=== PATIENT | female | born 1990 | race Caucasian/White ===

== ENCOUNTER 2016-07-12 12:05 | Emergency (ER) | payer MEDICAID ==
[2016-07-12 12:19] VITALS: BP 128/78
--- NOTE | 2016-07-12 12:29 | EDM.PDOC ---
[id number] "I need more medicine until next thursday" Time Seen by Provider: 07/12/16 12:05 Source of Information: Reports: Patient History Limitations: Reports: No limitations - History of Present Illness INITIAL COMMENTS - FREE TEXT/NARRATIVE: This is a well known to department 26 year old that presents to the ER. Patient reports she is out of all her medications. She requests refills for trazadone, dilaudid, oxycodone, clonidine, tegretol, prilosec, robaxin, hydrocodoone, xanax , cymbalta. She denies any symptoms or complaints. Onset: today Onset Date: 07/12/16 Improves with: Reports: None Worsens with: Reports: None Associated Symptoms: Reports: no other symptoms - Related Data Allergies Allergy/AdvReac Type Severity Reaction Status Date / Time amoxicillin [Amoxicillin] Allergy Hives Verified 07/12/16 13:21 azithromycin [From Zithromax] Allergy Hives Verified 07/12/16 13:21 cephalexin [Cephalexin] Allergy Hives Verified 07/12/16 13:21 Sulfa (Sulfonamide Allergy Hives Verified 07/12/16 13:21 Antibiotics) Home Meds: Home Meds ALPRAZolam [Xanax] 1 mg PO TID PRN 04/08/13 [History] DULoxetine [Cymbalta] 120 mg PO BEDTIME 04/08/13 [History] Hydrocodone/Acetaminophen [Hydrocodon-Acetaminophn 10-325] 1 tab PO Q6H PRN [History] Omeprazole [Prilosec] 20 mg PO DAILY 04/08/13 [History] traZODone 50 - 100 mg PO BEDTIME PRN 04/08/13 [History] cloNIDine [Catapres] 0.1 mg PO QID 02/17/14 [History] carBAMazepine [TEGretol Tab] 200 mg PO TID 05/05/15 [History] Methocarbamol [Robaxin] 500 mg PO Q8H 01/20/16 [History] SUMAtriptan [Imitrex] 25 mg PO Q2H PRN 01/20/16 [History] oxyCODONE 5 mg PO Q8H PRN 04/21/16 [History] Past Medical History - Past Health History Medical/Surgical History: Denies Medical/Surgical History Cardiovascular History: Reports: Hypertension, Other (see below) 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 Gastrointestinal History: Reports: GERD, Other (see below) Other Gastrointestinal History: bowel adhesions Genitourinary History: Reports: UTI, recurrent 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, Other (see below) Other OB/BYN History: Ovarian cyst removal; current right ovarian cyst X 2 of 5cm each Neurological History: Reports: Seizure Psychiatric History: Reports: Anxiety, Depression, Panic attack, PTSD, Other ( see below) Other Psychiatric History: Multiple personality disorder - Past Surgical History GI Surgical History: Reports: Appendectomy Social & Family History - Family History Family Medical History: Noncontributory Cardiac: Reports: CAD, Hypertension - Tobacco Use Smoking Status *Q: Current Every Day Smoker Years of Tobacco use: 7 Packs/Tins Daily: 1 Second Hand Smoke Exposure: Yes - Caffeine Use Caffeine Use: Reports: Coffee, Energy drinks, Soda - Alcohol Use Days Per Week of Alcohol Use: 1 Number of Drinks Per Day: 2 Total Drinks Per Week: 2 - Recreational Drug Use Recreational Drug Use: No Recreational Drug Type: Reports: Marijuana/Hashish - Living Situation & Occupation Living situation: Reports: with family ED ROS GENERAL - Review of Systems Review Of Systems: See Below Constitutional: Reports: no symptoms HEENT: Reports: No symptoms Respiratory: Reports: No Symptoms Cardiovascular: Reports: No symptoms Endocrine: Reports: no symptoms GI/Abdominal: Reports: No symptoms : Reports: no symptoms Musculoskeletal: Reports: no symptoms Skin: Reports: no symptoms Neurological: Reports: No Symptoms Psychiatric: Reports: No symptoms Hematologic/Lymphatic: Reports: no symptoms Immunologic: Reports: no symptoms ED EXAM, GENERAL - Physical Exam Exam: See Below Exam Limited By: No limitations General Appearance: alert, WD/WN, no apparent distress Eye Exam: bilateral eye: PERRL Ears: normal external exam, normal canal, hearing grossly normal, normal TMs Ear Exam: bilateral ear: auricle normal, canal normal, TM normal Throat/Mouth: Normal inspection Respiratory/Chest: no respiratory distress, lungs clear, normal breath sounds, no accessory muscle use Cardiovascular: normal peripheral pulses, regular rate, rhythm, no edema, no gallop, no JVD, no murmur, no rub Course - Vital Signs Last Recorded V/S: Last Vital Signs Temp 98.2 F 07/12/16 12:18 Pulse 76 04/22/17 12:18 Resp 20 07/12/16 12:18 BP 128/78 07/12/16 12:18 Pulse Ox 99 07/12/16 12:18 - Re-Assessments/Exams Free Text/Narrative Re-Assessment/Exam: 07/12/16 12:31 I called [facility] and talked with them about her GAVIN report. The patient had several medications filled recently. She had Dilaudid filled on June 06 quantity of 30, quantity 30, and quantity 20. She got filled hydrocodone june 16 a 30 day supply. She got filled Tylenol #3 on July 08 quantity 40. I instructed the patient about her violation of the law by not taking medications as prescribed, I instructed her I would not fill her pain medications. I told her this ER will not re fill her medications that are narcotics again. Departure - Departure Time of Disposition: 12:25 Disposition: Home, Self-Care 01 Condition: good Clinical Impression: Medication refill, Drug-seeking behavior, Chronic narcotic dependence, Narcotic dependency, continuous Referrals: U [Other] Forms: ED Department Discharge Additional Instructions: Followup with your primary care provider Take your medications as they are prescribed I filled for you and are available at [facility]: Clonidine 0.1mg by mouth four times a day #40 no refill Prilosec 20mg 1 pill once a day #10 no refill Cymbalta 120mgt 1 pill at bedtime #10 no refill Tegretol 200mg 1 pill three times a day #30 no refill *THIS EMERGENCY DEPARTMENT WILL NO LONGER REFILL PAIN MEDICATION: EVIDENCE BY GAVIN REPORT. - Assessment/Plan Plan: PLEASE SEE RN NOTE FOR PFSH.
== END 2016-07-12 12:35 | disposition home or self-care (01) ==
LOC: CC.ED 12:05
DX: Z76.0 Encounter for issue of repeat prescription (principal); F11.20 Opioid dependence, uncomplicated; Z76.5 Malingerer [conscious simulation]; I10 Essential (primary) hypertension; K21.9 Gastro-esophageal reflux disease without esophagitis; F41.9 Anxiety disorder, unspecified; F32.9 Major depressive disorder, single episode, unspecified; F17.210 Nicotine dependence, cigarettes, uncomplicated; Z88.1 Allergy status to other antibiotic agents; Z87.440 Personal history of urinary (tract) infections; Z88.2 Allergy status to sulfonamides; Z79.899 Other long term (current) drug therapy; Z90.49 Acquired absence of other specified parts of digestive tract
CPT/HCPCS: 99281

== ENCOUNTER 2016-07-17 21:21 | Emergency (ER) | payer MEDICAID ==
[2016-07-17 21:47] VITALS: BP 130/76
[2016-07-17 21:48] LABS: CHLORIDE,CL 109 mEq/L (98-106); SODIUM,NA 145 mEq/L (136-145)
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
== END 2016-07-17 23:00 ==
LOC: CC.ED 21:21
DX: F10.129 Alcohol abuse with intoxication, unspecified (principal); R45.851 Suicidal ideations; R45.850 Homicidal ideations; I10 Essential (primary) hypertension; K21.9 Gastro-esophageal reflux disease without esophagitis; F41.9 Anxiety disorder, unspecified; F32.9 Major depressive disorder, single episode, unspecified; Z90.49 Acquired absence of other specified parts of digestive tract; Z88.1 Allergy status to other antibiotic agents; Z88.2 Allergy status to sulfonamides; Z79.899 Other long term (current) drug therapy; Z87.440 Personal history of urinary (tract) infections; F17.210 Nicotine dependence, cigarettes, uncomplicated
CPT/HCPCS: 36415; 80048; 84703; 85025; 99285

== ENCOUNTER 2016-08-28 20:46 | Emergency (ER) | payer MEDICAID, SELFPAY ==
[2016-08-28 20:54] VITALS: BP 135/92
[2016-08-28] MEDS ORDERED: HYDROmorphone 1 MG/ML Syringe IM ONE (21:24)
[2016-08-28] MEDS ORDERED: Ondansetron 4 MG Tab.DIS PO ONE (21:25)
[2016-08-28] MEDS ORDERED: Ketorolac 60 MG/2 ML SDV IM ONE (21:25)
--- NOTE | 2016-08-28 21:28 | EDM.PDOC ---
ED HPI GENERAL MEDICAL PROBLEM - General Chief Complaint: Abdominal Pain Stated Complaint: ovarian cyst pain Time Seen by Provider: 08/28/16 21:04 Source of Information: Reports: Patient History Limitations: Reports: No Limitations - History of Present Illness INITIAL COMMENTS - FREE TEXT/NARRATIVE: This patient is a very well known patient to the ER. Patient reports history of chronic pain to the Right ovary. She reports she takes Percocet, but she ran out on the 6th. She reports she has contacted her PCP about this. She reports she was instructed to come to the ER for pain worsening after not having pain medication. Patient denies ingram, dizziness, n, v, d, f, abd pain, dysuria, discharge, bleeding. Fully alert and oriented. Does not appear in distress. Reports pain is not as bad as it has been in past, as this is a chronic condition with waxing and waning. Stable. Duration: Chronic (worse since yesterday) Quality: Reports: Ache Severity: Mild Improves with: Reports: None Worsens with: Reports: None Associated Symptoms: Reports: No Other Symptoms. Denies: Confusion, Chest Pain , Cough, cough w sputum, Diaphoresis, Fever/Chills, Headaches, Loss of Appetite , Malaise, Nausea/Vomiting, Rash, Seizure, Shortness of Breath, Syncope, Weakness Right Pelvic Pain Score (Numeric/FACES): 10 - Related Data Allergies Allergy/AdvReac Type Severity Reaction Status Date / Time amoxicillin [Amoxicillin] Allergy Hives Verified 08/28/16 20:47 azithromycin [From Zithromax] Allergy Hives Verified 08/28/16 20:47 cephalexin [Cephalexin] Allergy Hives Verified 08/28/16 20:47 Sulfa (Sulfonamide Allergy Hives Verified 08/28/16 20:47 Antibiotics) Home Meds: Home Meds ALPRAZolam [Xanax] 1 mg PO TID PRN 04/08/13 [History] DULoxetine [Cymbalta] 120 mg PO BEDTIME 04/08/13 [History] Hydrocodone/Acetaminophen [Hydrocodon-Acetaminophn 10-325] 1 tab PO Q6H PRN [History] Omeprazole [Prilosec] 20 mg PO DAILY 04/08/13 [History] traZODone 50 - 100 mg PO BEDTIME PRN 04/08/13 [History] cloNIDine [Catapres] 0.1 mg PO QID 02/17/14 [History] carBAMazepine [TEGretol Tab] 300 mg PO TID 05/05/15 [History] Methocarbamol [Robaxin] 500 mg PO Q8H 01/20/16 [History] SUMAtriptan [Imitrex] 25 mg PO Q2H PRN 01/20/16 [History] oxyCODONE 5 mg PO Q8H PRN 04/21/16 [History] Past Medical History - Past Health History Medical/Surgical History: Denies Medical/Surgical History Cardiovascular History: Reports: Hypertension 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 Gastrointestinal History: Reports: GERD Other Gastrointestinal History: bowel adhesions Genitourinary History: Reports: UTI, Recurrent BLOCK 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 HAND History: Reports: PID, Polycystic Ovaries Other OB/BYN History: Ovarian cyst removal; current right ovarian cyst X 2 of 5cm each Neurological History: Reports: Seizure Psychiatric History: Reports: Anxiety, Depression, Panic Attack, PTSD Other Psychiatric History: Multiple personality disorder - Past Surgical History GI Surgical History: Reports: Appendectomy Social & Family History - Family History Family Medical History: Noncontributory Cardiac: Reports: CAD, Hypertension - Tobacco Use Smoking Status *Q: Current Every Day Smoker Years of Tobacco use: 10 Packs/Tins Daily: 0.5 Second Hand Smoke Exposure: Yes - Caffeine Use Caffeine Use: Reports: Coffee, Energy Drinks, Soda - Alcohol Use Days Per Week of Alcohol Use: 1 Number of Drinks Per Day: 2 Total Drinks Per Week: 2 - Recreational Drug Use Recreational Drug Use: No Recreational Drug Type: Reports: Marijuana/Hashish - Living Situation & Occupation Living situation: Reports: with Family ED ROS GENERAL - Review of Systems Review Of Systems: See Below Constitutional: Reports: No Symptoms HEENT: Reports: No Symptoms Respiratory: Reports: No Symptoms Cardiovascular: Reports: No Symptoms Endocrine: Reports: No Symptoms GI/Abdominal: Reports: No Symptoms : Reports: Pain ("right ovary"). Denies: Discharge, Dysuria, Flank Pain, Frequency, Hematuria, Incontinence, Irregular Menses, Urgency, Urinary Retention Musculoskeletal: Reports: No Symptoms Skin: Reports: No Symptoms Neurological: Reports: No Symptoms Psychiatric: Reports: No Symptoms Hematologic/Lymphatic: Reports: No Symptoms Immunologic: Reports: No Symptoms ED EXAM, GI/ABD - Physical Exam Exam: See Below Exam Limited By: No Limitations General Appearance: Alert, WD/WN, No Apparent Distress Eyes: Bilateral: Normal Appearance Ears: Normal External Exam, Normal Canal, Hearing Grossly Normal, Normal TMs Nose: Normal Inspection, Normal Mucosa, No Blood Throat/Mouth: Normal Inspection, Normal Lips, Normal Teeth, Normal Gums, Normal Oropharynx, Normal Voice, No Airway Compromise Head: Atraumatic, Normocephalic Neck: Normal Inspection, Supple, Non-Tender, Full Range of Motion Respiratory/Chest: No Respiratory Distress, Lungs Clear, Normal Breath Sounds, No Accessory Muscle Use Cardiovascular: Normal Peripheral Pulses, Regular Rate, Rhythm, No Edema, No Gallop, No JVD, No Murmur, No Rub GI/Abdominal: Soft, Tenderness (right ovary, mild. ) (Female) Exam: Deferred Back Exam: Normal Inspection, Full Range of Motion Extremities: Normal Inspection, Normal Range of Motion, Non-Tender, No Pedal Edema, Normal Capillary Refill Neurological: Alert, Oriented Psychiatric: Normal Affect, Normal Mood Skin Exam: Warm, Dry, Intact, Normal Color, No Rash Lymphatic: No Adenopathy Course - Vital Signs Last Recorded V/S: Last Vital Signs Temp 99.8 F 08/28/16 20:49 Pulse 100 08/28/16 20:49 Resp 16 08/28/16 20:49 BP 135/92 H 08/28/16 20:49 Pulse Ox 96 08/28/16 20:49 - Orders/Labs/Meds Meds: Medications Discontinued Medications Generic Name Dose Route Start Last Admin Trade Name Clifq PRN Reason Stop Dose Admin Hydromorphone HCl 0.5 mg 08/28/16 21:24 Dilaudid IM 08/28/16 21:25 ONETIME ONE Ketorolac Tromethamine 60 mg 08/28/16 21:25 Toradol IM 08/28/16 21:26 ONETIME ONE Ondansetron HCl 4 mg 08/28/16 21:25 Zofran Odt PO 08/28/16 21:26 ONETIME ONE Departure - Departure Time of Disposition: 21:26 Disposition: Home, Self-Care 01 Condition: good Clinical Impression: Ovarian cyst - Discharge Information Instructions: Ovarian Cyst, Qare-gu-Endy Referrals: PCP,None [Primary Care Provider] - Forms: ED Department Discharge Additional Instructions: Followup with your primary care provider Return to the ER for worsening of condition or any emergent concerns - Assessment/Plan Plan: PLEASE SEE RN NOTE FOR PFSH.
== END 2016-08-28 21:37 | disposition home or self-care (01) ==
LOC: CC.ED 20:46
DX: N83.201 Unspecified ovarian cyst, right side (principal); I10 Essential (primary) hypertension; K21.9 Gastro-esophageal reflux disease without esophagitis; F41.0 Panic disorder [episodic paroxysmal anxiety]; F32.9 Major depressive disorder, single episode, unspecified; F17.210 Nicotine dependence, cigarettes, uncomplicated; Z90.49 Acquired absence of other specified parts of digestive tract; Z79.899 Other long term (current) drug therapy; Z88.1 Allergy status to other antibiotic agents; Z88.2 Allergy status to sulfonamides
CPT/HCPCS: 96372; 99283; A9270; J1170; J1885

== ENCOUNTER 2017-01-23 21:39 | Emergency (ER) | payer MEDICAID ==
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
[2017-01-24 05:24] VITALS: BP 114/76
== END 2017-01-24 03:33 | disposition home or self-care (01) ==
LOC: CC.ED 21:39
DX: S30.0XXA Contusion of lower back and pelvis, initial encounter (principal); F15.10 Other stimulant abuse, uncomplicated; I10 Essential (primary) hypertension; K21.9 Gastro-esophageal reflux disease without esophagitis; F41.0 Panic disorder [episodic paroxysmal anxiety]; F32.9 Major depressive disorder, single episode, unspecified; F17.210 Nicotine dependence, cigarettes, uncomplicated; Z79.899 Other long term (current) drug therapy; Z88.1 Allergy status to other antibiotic agents; Z88.2 Allergy status to sulfonamides; Y04.0XXA Assault by unarmed brawl or fight, initial encounter
CPT/HCPCS: 72100; 80305; 81025; 99284

== ENCOUNTER 2017-09-14 11:20 | Emergency (ER) | payer MEDICAID ==
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
== END 2017-09-14 11:45 ==
LOC: CC.ED 11:20
DX: Z53.20 Procedure and treatment not carried out because of patient's decision for unspecified reasons (principal)

== ENCOUNTER 2018-08-27 16:19 | Emergency (ER) | payer SELFPAY ==
[2018-08-27 16:58] VITALS: BP 144/97
[2018-08-27 17:03] LABS: CHLORIDE,CL 108 mEq/L (98-106); SODIUM,NA 144 mEq/L (136-145)
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
[2018-08-27] MEDS ORDERED: NS + KCl 20mEq/L 1,000 ML IV SCH (17:30)
[2018-08-27] MEDS ORDERED: Sodium Chloride 0.9% 1,000 ML IV SCH (17:30)
[2018-08-27] MEDS ORDERED: NS + KCl 20mEq/L 1,000 ML ONE (17:33)
== END 2018-08-27 20:10 ==
LOC: CC.ED 16:19
DX: F29 Unspecified psychosis not due to a substance or known physiological condition (principal); R25.9 Unspecified abnormal involuntary movements; F15.10 Other stimulant abuse, uncomplicated; F41.9 Anxiety disorder, unspecified; K21.9 Gastro-esophageal reflux disease without esophagitis; I10 Essential (primary) hypertension; Z90.49 Acquired absence of other specified parts of digestive tract; Z88.1 Allergy status to other antibiotic agents; Z88.2 Allergy status to sulfonamides; Z79.899 Other long term (current) drug therapy
CPT/HCPCS: 36415; 80053; 80305; 82550; 85025; 86140; 99285; J3360; J3480; 96361; 96374

== ENCOUNTER 2019-09-13 15:40 | Emergency (ER) | payer MEDICAID ==
[2019-09-13 15:47] VITALS: BP 148/97; PULSE 118
--- NOTE | 2019-09-13 17:10 | EDM.PDOC ---
ED HPI GENERAL MEDICAL PROBLEM - General Chief Complaint: Genitourinary Problem Stated Complaint: vaginal bleeding Time Seen by Provider: 09/13/19 15:55 Source of Information: Reports: Patient, Significant Other History Limitations: Reports: Intoxication - History of Present Illness INITIAL COMMENTS - FREE TEXT/NARRATIVE: Lanny is a 29 yo female who presents to the ED with concerns of vaginal bleeding that started a few days ago. She states she was getting out of the shower a couple days ago and fell onto the tub. She admits it didn't really bother her that evening and ended up having intercourse that night. She states she started having some bleeding yesterday and was changing a pad roughly every 4 hours. hasn't had any bleeding recently but unsure if it is her period or possibly . She denies any discomfort at this time. She also would like someone to help her with her psychiatric medications as she has stopped those quite some time ago abruptly. She currently doesn't have a primary provider as she has been discharge from the clinic here in town. She admits to self medicating. She states she needs to see someone for her anxiety as it is getting worse and would like to see a counselor. Right Feet Pain Score (Numeric/FACES): 7 Right Lower Abdomen Pain Score (Numeric/FACES): 7 - Related Data Allergies Allergy/AdvReac Type Severity Reaction Status Date / Time amoxicillin [Amoxicillin] Allergy Hives Verified 09/13/19 16:24 azithromycin [From Zithromax] Allergy Hives Verified 09/13/19 16:24 cephalexin [Cephalexin] Allergy Hives Verified 09/13/19 16:24 Sulfa (Sulfonamide Allergy Hives Verified 09/13/19 16:24 Antibiotics) Home Meds: Home Meds ALPRAZolam [Xanax] 1 mg PO TID PRN 04/08/13 [History] DULoxetine [Cymbalta] 120 mg PO BEDTIME 04/08/13 [History] Hydrocodone/Acetaminophen [Hydrocodone-Acetamin 10-325 mg] 1 tab PO Q6H PRN 04/08/13 [History] Omeprazole [Prilosec] 20 mg PO DAILY 04/08/13 [History] traZODone 50 - 100 mg PO BEDTIME PRN 04/08/13 [History] cloNIDine [Catapres] 0.1 mg PO QID 02/17/14 [History] carBAMazepine [TEGretol Tab] 300 mg PO TID 05/05/15 [History] Methocarbamol [Robaxin] 500 mg PO Q8H 01/20/16 [History] SUMAtriptan [Imitrex] 25 mg PO Q2H PRN 01/20/16 [History] oxyCODONE 5 mg PO Q8H PRN 04/21/16 [History] Past Medical History - Past Health History Medical/Surgical History: Denies Medical/Surgical History Cardiovascular History: Reports: Hypertension 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 Gastrointestinal History: Reports: GERD Other Gastrointestinal History: bowel adhesions Genitourinary History: Reports: UTI, Recurrent 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 ORDNANCE History: Reports: PID, Polycystic Ovaries Other PAINTER ORDNANCE History: Ovarian cyst removal; current right ovarian cyst X 2 of 5cm each Neurological History: Reports: Seizure Psychiatric History: Reports: Anxiety, Depression, Panic Attack, PTSD Other Psychiatric History: Multiple personality disorder - Past Surgical History GI Surgical History: Reports: Appendectomy Social & Family History - Family History Family Medical History: Noncontributory Cardiac: Reports: CAD, Hypertension - Caffeine Use Caffeine Use: Reports: Coffee, Energy Drinks, Soda - Recreational Drug Use Recreational Drug Use: Yes Recreational Drug Type: Reports: Marijuana/Hashish - Living Situation & Occupation Living situation: Reports: with Family ED ROS GENERAL - Review of Systems Review Of Systems: Comprehensive ROS is negative, except as noted in HPI. GI/Abdominal: Reports: Abdominal Pain. Denies: Bloody Stool, Constipation, Diarrhea, Nausea, Vomiting : Reports: Irregular Menses. Denies: Discharge, Flank Pain, Hematuria Psychiatric: Reports: Anxiety ED EXAM, GI/ABD - Physical Exam Exam: See Below Exam Limited By: Intoxication (Patient is speaking at a very fast pace.) General Appearance: Anxious GI/Abdominal Exam: Normal Bowel Sounds, Soft, No Organomegaly, No Distention, No Mass, Pelvis Stable (Female) Exam: Deferred (patient declined exam. significant other states he looked and didn't notice any bruises or lacerations. ) Neurological: Alert, Oriented Psychiatric: Anxious, Tearful Course - Vital Signs Last Recorded V/S: Last Vital Signs Temp 98.7 F 09/13/19 15:42 Pulse 118 H 09/13/19 15:42 Resp 24 H 09/13/19 15:42 BP 148/97 H 09/13/19 15:42 Pulse Ox 98 09/13/19 15:42 - Orders/Labs/Meds Orders: Active Orders 24 hr Category Date Time Status Transvaginal Non OB [US] Stat Exams 09/13/19 16:14 Ordered DRUG SCREEN, URINE (NPL) Stat Lab 09/13/19 16:10 Stop Req Labs: Laboratory Tests 09/13/19 09/13/19 Range/Units 16:10 16:25 Urine HCG, Qual Negative Urine Opiates Screen Negative (NEGATIVE) Ur Oxycodone Screen Negative (NEGATIVE) Urine Methadone Screen Negative (NEGATIVE) Ur Barbiturates Screen Negative (NEGATIVE) U Tricyclic Antidepress Negative (NEGATIVE) Ur Phencyclidine Scrn Negative (NEGATIVE) Ur Amphetamine Screen Positive H (NEGATIVE) U Methamphetamines Scrn Positive H (NEGATIVE) Urine MDMA Screen Positive H (NEGATIVE) U Benzodiazepines Scrn Negative (NEGATIVE) Urine Cocaine Screen Negative (NEGATIVE) U Marijuana (THC) Screen Negative (NEGATIVE) Departure - Departure Time of Disposition: 17:11 Disposition: Home, Self-Care 01 Clinical Impression: Anxiety, Vaginal bleeding - Discharge Information Referrals: PCP,Fartun [Primary Care Provider] - Additional Instructions: 1) If bleeding returns or worsens, advise reevaluation 2) Will consult with Itzel Decker for assistance in records to mental health 3) Encourage sustaining from any illicit drugs 4) If any concerns, return for reevaluation. Sepsis Event Note (ED) - Evaluation Sepsis Screening Result: No Definite Risk - Focused Exam Vital Signs: Vital Signs Temp Pulse Resp BP Pulse Ox 09/13/19 15:42 98.7 F 118 H 24 H 148/97 H 98 - Problem List & Annotations (1) Methamphetamine abuse SNOMED Code(s): 258410373 Code(s): F15.10 - OTHER STIMULANT ABUSE, UNCOMPLICATED Status: Acute Current Visit: No (2) Anxiety SNOMED Code(s): 09914026 Code(s): F41.9 - ANXIETY DISORDER, UNSPECIFIED Status: Chronic Priority: Medium Current Visit: Yes Onset Date: 05/05/15 Annotation/Comment:: has taken too many xanax over the prescription time, is 8 days early (3) Vaginal bleeding SNOMED Code(s): 788390357 Code(s): N93.9 - ABNORMAL UTERINE AND VAGINAL BLEEDING, UNSPECIFIED Status: Acute Current Visit: Yes - My Orders Last 24 Hours: My Active Orders 09/13/19 16:10 DRUG SCREEN, URINE (NPL) Stat 09/13/19 16:14 Transvaginal Non OB [US] Stat - Assessment/Plan Last 24 Hours: My Active Orders 09/13/19 16:10 DRUG SCREEN, URINE (NPL) Stat 09/13/19 16:14 Transvaginal Non OB [US] Stat Plan: Ultrasound completed today and no acute findings. Simple cyst to left ovary noted. No free fluid. Urine is negative. Drug toxicology screen is positive for methamphetamines and MDMA. Discussed with Lanny she needs to establish care with a primary provider and will consult with Itzel Decker if there is anything we can do to help her within our facility.
== END 2019-09-13 17:19 | disposition home or self-care (01) ==
LOC: CC.ED 15:40
DX: N93.9 Abnormal uterine and vaginal bleeding, unspecified (principal); F41.9 Anxiety disorder, unspecified; I10 Essential (primary) hypertension; K21.9 Gastro-esophageal reflux disease without esophagitis; F32.9 Major depressive disorder, single episode, unspecified; Z88.1 Allergy status to other antibiotic agents; Z88.2 Allergy status to sulfonamides; Z79.899 Other long term (current) drug therapy
CPT/HCPCS: 76830; 80305-QW; 80307; 81025; 99284-25

== ENCOUNTER 2023-03-18 16:16 | Emergency (ER) | payer MEDICAID ==
[2023-03-18 17:10] VITALS: BP 140/96; PULSE 116
== END 2023-03-18 18:15 | disposition home or self-care (01) ==
LOC: CC.ED 16:16
DX: U07.1 COVID-19 (principal); I10 Essential (primary) hypertension; Z90.49 Acquired absence of other specified parts of digestive tract; Z88.0 Allergy status to penicillin; Z88.1 Allergy status to other antibiotic agents; Z88.2 Allergy status to sulfonamides; Z79.899 Other long term (current) drug therapy
CPT/HCPCS: 87804; 99283; 99284; U0002

== ENCOUNTER 2023-04-02 18:11 | Emergency (ER) | payer MEDICAID ==
[2023-04-02 18:16] VITALS: BP 166/90; PULSE 95
[2023-04-02] MEDS ORDERED: Take Home: Clindamycin HCl 150 MG Cap, 6 Cap Pack PO ONE (18:22)
== END 2023-04-02 18:40 | disposition home or self-care (01) ==
LOC: CC.ED 18:11
DX: K04.7 Periapical abscess without sinus (principal); I10 Essential (primary) hypertension; Z79.899 Other long term (current) drug therapy; Z88.0 Allergy status to penicillin; Z88.2 Allergy status to sulfonamides
CPT/HCPCS: 99282; 99283; A9270-GY

== ENCOUNTER 2023-04-06 20:25 | Emergency (ER) | payer MEDICAID ==
[2023-04-06 21:07] LABS: BASOPHILS ABSOLUTE AUTO 0.04 10^3/uL (0.00-0.50); BASOPHILS PERCENT AUTO 0.4 % (0-1); EOSINOPHILS ABSOLUTE AUTO 0.34 10^3/uL (0.00-1.50); EOSINOPHILS PERCENT AUTO 3.5 % (0-6); HEMATOCRIT 39.3 % (37.0-47.0); HEMOGLOBIN 13.7 g/dL (12.0-16.0); IMMATURE GRAN ABSOLUTE AUTO 0.01 10^3/uL (0.00-0.49); IMMATURE GRAN PERCENT AUTO 0.1 % (0.0-4.9); LYMPHOCYTES ABSOLUTE AUTO 2.86 10^3/uL (0.60-5.00); LYMPHOCYTES PERCENT AUTO 29.9 % (24-44); MEAN CORPUSCULAR HGB CONC 34.9 g/dL (32.0-36.0); MEAN CORPUSCULAR VOLUME 86.2 fL (83.0-97.0); MONOCYTES ABSOLUTE AUTO 0.57 10^3/uL (0.00-1.50); MONOCYTES PERCENT AUTO 5.9 % (0-10); NEUTROPHILS ABSOLUTE AUTO 5.76 x10^3/uL (1.80-8.00); NEUTROPHILS PERCENT AUTO 60.2 % (41-71); PLATELET COUNT,PLT 327 10^3/uL (150-400); RED BLOOD CELL COUNT 4.56 x10^6/uL (4.00-5.50); WHITE BLOOD CELL COUNT,WBC 9.6 10^3/uL (4.0-11.0)
[2023-04-06 21:23] LABS: ALANINE AMINOTRANSFERASE,ALT 19 U/L (12-78); ALKALINE PHOSPHATASE 72 U/L (46-116); ASPARTATE AMNIOTRANSFERASE,AST 13 U/L (15-37); BILIRUBIN TOTAL 0.2 mg/dL (0.0-1.0); BLOOD UREA NITROGEN,BUN 17 mg/dL (7-18); C-REACTIVE PROTEIN < 0.50 mg/dL (<=0.50); CALCIUM 9.1 mg/dL (8.4-10.1); CARBON DIOXIDE,CO2 25 mmol/L (21-32); CHLORIDE,CL 101 mEq/L (98-106); CREATININE 0.7 mg/dL (0.6-1.0); EST CRCL DRUG DOSING (CG) 82.88 mL/min; ESTIMATED GFR 118 mL/min (>=60); GLUCOSE RANDOM 106 mg/dL (75-99); POTASSIUM,K 3.9 mEq/L (3.5-5.0); PROTEIN TOTAL,TP 7.8 g/dL (6.4-8.2); SODIUM,NA 138 mEq/L (136-145)
[2023-04-06 22:04] VITALS: BP 116/80; PULSE 88
== END 2023-04-06 21:40 | disposition home or self-care (01) ==
LOC: CC.ED 20:25
DX: R09.1 Pleurisy (principal); K02.9 Dental caries, unspecified; I10 Essential (primary) hypertension; F17.210 Nicotine dependence, cigarettes, uncomplicated; Z88.1 Allergy status to other antibiotic agents; Z88.2 Allergy status to sulfonamides; Z90.49 Acquired absence of other specified parts of digestive tract
CPT/HCPCS: 36415; 71046; 80053; 85025; 86140; 87804; 99284; 99285

== ENCOUNTER 2023-06-10 10:26 | Emergency (ER) | payer MEDICAID ==
[2023-06-10 10:40] VITALS: BP 133/89; PULSE 107
[2023-06-10 10:47] LABS: BASOPHILS ABSOLUTE AUTO 0.01 10^3/uL (0.00-0.50); BASOPHILS PERCENT AUTO 0.4 % (0-1); EOSINOPHILS ABSOLUTE AUTO 0.04 10^3/uL (0.00-1.50); EOSINOPHILS PERCENT AUTO 1.6 % (0-6); HEMATOCRIT 42.9 % (37.0-47.0); LYMPHOCYTES ABSOLUTE AUTO 1.02 10^3/uL (0.60-5.00); LYMPHOCYTES PERCENT AUTO 39.7 % (24-44); MEAN CORPUSCULAR HEMOGLOBIN 29.2 pg (27.0-32.0); MEAN CORPUSCULAR HGB CONC 32.6 g/dL (32.0-36.0); MEAN CORPUSCULAR VOLUME 89.6 fL (83.0-97.0); MONOCYTES ABSOLUTE AUTO 0.23 10^3/uL (0.00-1.50); MONOCYTES PERCENT AUTO 8.9 % (0-10); NEUTROPHILS ABSOLUTE AUTO 1.27 x10^3/uL (1.80-8.00); NEUTROPHILS PERCENT AUTO 49.4 % (41-71); PLATELET COUNT,PLT 146 10^3/uL (150-400); RED BLOOD CELL COUNT 4.79 x10^6/uL (4.00-5.50); WHITE BLOOD CELL COUNT,WBC 2.6 10^3/uL (4.0-11.0)
[2023-06-10 11:00] LABS: ALBUMIN 3.6 g/dL (3.4-5.0); BILIRUBIN TOTAL 0.1 mg/dL (0.0-1.0); C-REACTIVE PROTEIN 0.66 mg/dL (<=0.50); CALCIUM 8.3 mg/dL (8.4-10.1); CREATININE 0.8 mg/dL (0.6-1.0); EST CRCL DRUG DOSING (CG) 90.84 mL/min; POTASSIUM,K 4.4 mEq/L (3.5-5.0); PROTEIN TOTAL,TP 7.3 g/dL (6.4-8.2)
== END 2023-06-10 11:45 | disposition home or self-care (01) ==
LOC: CC.ED 10:26
DX: J40 Bronchitis, not specified as acute or chronic (principal); J98.8 Other specified respiratory disorders; I10 Essential (primary) hypertension; Z90.49 Acquired absence of other specified parts of digestive tract; Z79.899 Other long term (current) drug therapy; Z88.2 Allergy status to sulfonamides; Z88.1 Allergy status to other antibiotic agents; Z88.0 Allergy status to penicillin
CPT/HCPCS: 36415; 80053; 85025; 86140; 87804; 99283; U0002

== ENCOUNTER → 2023-06-25 | Day surgery (SDC) | payer MEDICAID ==
[~2023-06-25] MED LIST: Lactated Ringers 1,000 ML IV SCH
[2023-06-25 10:12] LABS: AMPHETAMINES,URINE NEGATIVE (NEGATIVE); BARBITURATES,URINE NEGATIVE (NEGATIVE); BENZODIAZEPINE,URINE NEGATIVE (NEGATIVE); MDMA (ECSTASY), URINE NEGATIVE (NEGATIVE); METHADONE,URINE NEGATIVE (NEGATIVE); METHAMPHETAMINES,URINE NEGATIVE (NEGATIVE); OPIATES,URINE NEGATIVE (NEGATIVE); OXYCODONE,URINE POSITIVE (NEGATIVE); PHENCYCLIDINE,URINE NEGATIVE (NEGATIVE); TCA,URINE NEGATIVE (NEGATIVE)
== END ==
LOC: CC.SDS 09:57
PROVIDERS: ATTEND Dentist General Practice
DX: K08.89 Other specified disorders of teeth and supporting structures (principal); Z53.8 Procedure and treatment not carried out for other reasons
CPT/HCPCS: 36415; 80305-QW; 84703

== ENCOUNTER → 2023-11-12 | Day surgery (SDC) | payer MEDICAID ==
[2023-11-12 08:01] LABS: AMPHETAMINES,URINE POSITIVE (NEGATIVE); BARBITURATES,URINE NEGATIVE (NEGATIVE); BENZODIAZEPINE,URINE NEGATIVE (NEGATIVE); MDMA (ECSTASY), URINE NEGATIVE (NEGATIVE); METHADONE,URINE NEGATIVE (NEGATIVE); METHAMPHETAMINES,URINE POSITIVE (NEGATIVE); OPIATES,URINE NEGATIVE (NEGATIVE); OXYCODONE,URINE POSITIVE (NEGATIVE); PHENCYCLIDINE,URINE NEGATIVE (NEGATIVE); TCA,URINE NEGATIVE (NEGATIVE)
== END ==
LOC: CC.SDS 07:46
PROVIDERS: ATTEND Dentist General Practice
DX: K02.9 Dental caries, unspecified (principal); Z53.8 Procedure and treatment not carried out for other reasons
CPT/HCPCS: 36415; 80305-QW; 84703

== ENCOUNTER 2023-12-21 14:00 | Emergency (ER) | payer MEDICAID ==
[2023-12-21 14:11] VITALS: BP 128/92; PULSE 106
== END 2023-12-21 14:45 | disposition home or self-care (01) ==
LOC: CC.ED 14:00
DX: H60.92 Unspecified otitis externa, left ear (principal); I10 Essential (primary) hypertension; F17.210 Nicotine dependence, cigarettes, uncomplicated; Z88.0 Allergy status to penicillin; Z88.2 Allergy status to sulfonamides; Z88.8 Allergy status to other drugs, medicaments and biological substances; Z79.899 Other long term (current) drug therapy; Z90.49 Acquired absence of other specified parts of digestive tract
CPT/HCPCS: 99283

== ENCOUNTER 2024-02-17 18:54 | Emergency (ER) | payer MEDICAID ==
[2024-02-17 18:56] VITALS: BP 133/87; PULSE 109
[2024-02-17] MEDS: Take Home: Acetaminophen/HYDROcodone 325-5 MG, 2 Tab Pack PO ONE (19:08)
== END 2024-02-17 19:15 | disposition home or self-care (01) ==
LOC: CC.ED 18:54
DX: K03.81 Cracked tooth (principal); K02.9 Dental caries, unspecified; I10 Essential (primary) hypertension; K21.9 Gastro-esophageal reflux disease without esophagitis; F17.210 Nicotine dependence, cigarettes, uncomplicated; Z88.0 Allergy status to penicillin; Z88.1 Allergy status to other antibiotic agents; Z88.2 Allergy status to sulfonamides; Z88.8 Allergy status to other drugs, medicaments and biological substances; Z79.899 Other long term (current) drug therapy; Z90.49 Acquired absence of other specified parts of digestive tract
CPT/HCPCS: 99282; A9270-GY

== ENCOUNTER 2024-05-15 23:05 | Emergency (ER) | payer MEDICAID ==
[2024-05-15 23:09] VITALS: BP 123/82; PULSE 100
[2024-05-15 23:50] LABS: BASOPHILS ABSOLUTE AUTO 0.04 10^3/uL (0.00-0.50); BASOPHILS PERCENT AUTO 0.4 % (0-1); EOSINOPHILS ABSOLUTE AUTO 0.56 10^3/uL (0.00-1.50); EOSINOPHILS PERCENT AUTO 5.4 % (0-6); HEMOGLOBIN 11.7 g/dL (12.0-16.0); IMMATURE GRAN ABSOLUTE AUTO 0.02 10^3/uL (0.00-0.49); IMMATURE GRAN PERCENT AUTO 0.2 % (0.0-4.9); LYMPHOCYTES ABSOLUTE AUTO 2.77 10^3/uL (0.60-5.00); LYMPHOCYTES PERCENT AUTO 26.8 % (24-44); MEAN CORPUSCULAR HEMOGLOBIN 30.5 pg (27.0-32.0); MEAN CORPUSCULAR HGB CONC 33.4 g/dL (32.0-36.0); MEAN CORPUSCULAR VOLUME 91.4 fL (83.0-97.0); MONOCYTES ABSOLUTE AUTO 0.45 10^3/uL (0.00-1.50); MONOCYTES PERCENT AUTO 4.4 % (0-10); NEUTROPHILS ABSOLUTE AUTO 6.48 x10^3/uL (1.80-8.00); NEUTROPHILS PERCENT AUTO 62.8 % (41-71); PLATELET COUNT,PLT 246 10^3/uL (150-400); RED BLOOD CELL COUNT 3.83 x10^6/uL (4.00-5.50); WHITE BLOOD CELL COUNT,WBC 10.3 10^3/uL (4.0-11.0)
[2024-05-16 00:01] LABS: ALBUMIN 3.4 g/dL (3.4-5.0); BILIRUBIN TOTAL 0.2 mg/dL (0.0-1.0); CALCIUM 8.3 mg/dL (8.4-10.1); CREATININE 0.8 mg/dL (0.6-1.0); POTASSIUM,K 4.3 mEq/L (3.5-5.0); PROTEIN TOTAL,TP 6.5 g/dL (6.4-8.2)
== END 2024-05-16 00:28 | disposition home or self-care (01) ==
LOC: CC.ED 23:05
DX: S86.911A Strain of unspecified muscle(s) and tendon(s) at lower leg level, right leg, initial encounter (principal); I10 Essential (primary) hypertension; F17.210 Nicotine dependence, cigarettes, uncomplicated; K21.9 Gastro-esophageal reflux disease without esophagitis; Z88.1 Allergy status to other antibiotic agents; Z88.2 Allergy status to sulfonamides; Z90.49 Acquired absence of other specified parts of digestive tract
CPT/HCPCS: 36415; 80053; 85025; 85379; 86140; 99283

== ENCOUNTER 2024-05-22 15:15 | Emergency (ER) | payer MEDICAID ==
[2024-05-22] MEDS: predniSONE 20 MG Tab PO STA (15:43)
[2024-05-22 18:05] VITALS: BP 132/68; PULSE 87
== END 2024-05-22 15:45 | disposition home or self-care (01) ==
LOC: CC.ED 15:15
DX: J06.9 Acute upper respiratory infection, unspecified (principal); B97.89 Other viral agents as the cause of diseases classified elsewhere; I10 Essential (primary) hypertension; K21.9 Gastro-esophageal reflux disease without esophagitis; Z90.49 Acquired absence of other specified parts of digestive tract; Z79.899 Other long term (current) drug therapy; Z79.2 Long term (current) use of antibiotics; Z88.0 Allergy status to penicillin; Z88.1 Allergy status to other antibiotic agents; Z88.2 Allergy status to sulfonamides
CPT/HCPCS: 71046; 87428-QW; 99283; J7512